=== PATIENT | female | born 1955 | race Caucasian/White ===

== ENCOUNTER 2017-11-16 20:31 | Inpatient (IN) | payer OTHER ==
[~2017-11-16] VITALS: Ht 165.1 cm; Wt 84.8 kg
[2017-11-16 21:20] LABS: ABSOLUTE BASOPHIL COUNT 0.1 /CUMM (0.0-0.2); ABSOLUTE EOSINOPHIL COUNT 0.2 /CUMM (0.0-0.7); ABSOLUTE GRANULOCYTE CT 7.3 /CUMM (1.4-6.5); ABSOLUTE LYMPH COUNT 4.6 /CUMM (1.2-3.4); ABSOLUTE MONOCYTE COUNT 1.1 /CUMM (0.10-0.60); BASOPHIL % 0.7 % (0.0-2.0); EOSINOPHIL % 1.4 % (0-5); GRANULOCYTE % 55.4 % (42.2-75.2); HEMATOCRIT 43.1 % (37-47); MEAN CORPUSCULAR HGB 29.9 PG (27.0-31.0); MEAN CORPUSCULAR HGB CONC 33.9 G/DL (33.0-37.0); MEAN CORPUSCULAR VOLUME 88.1 FL (81.0-99.0); PLATELET COUNT 228 /CUMM (130-400); RBC DISTRIBUTION WIDTH 13.9 % (11.5-14.5); RED BLOOD CELL CT 4.89 /CUMM (4.20-5.40); WHITE BLOOD CELL COUNT 13.3 /CUMM (4.8-10.8)
--- NOTE | 2017-11-16 22:12 | ED GI/GU/ABDOMINAL COMPLAINT ---
History of Present Illness General Chief Complaint: Nausea, Vomiting, Diarrhea Stated Complaint: NAUSEA,VOMITING Source: patient Exam Limitations: no limitations Vital Signs & Intake/Output Vital Signs & Intake/Output Vital Signs Date Time Temp Pulse Resp B/P B/P Pulse O2 O2 Flow FiO2 Mean Ox Delivery Rate 11/17 0615 98.5 85 18 136/84 91 Room Air 11/17 0144 98.6 88 18 180/96 92 Room Air 11/17 0129 79 20 177/81 98 11/16 2239 Room Air 11/16 2239 98.5 85 16 180/85 98 Room Air 11/16 2141 120/79 11/16 2108 96.8 89 18 82/50 96 Room Air ED Intake and Output 11/17 0000 11/16 1200 Intake Total 2000 Output Total Balance 1999 Intake, IV 2000 Patient 187 lb Weight Weight Reported by Patient Measurement Method Allergies Coded Allergies: NO KNOWN ALLERGIES (11/12/10) Triage Note: PT TO ED C/O +NAUSEA AND ABDOMINAL PAIN "FOR DAYS" I HAVEN'T BEEN ABLE TO EAT OR DRINK FOR 2 DAYS. 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 yes LMP (ages 10-50): post menopausal ? N Is pt currently ? No Onset: Abrupt Duration: day(s): (2-3), constant, continues in ED, getting worse Timing: single episode today Quality/Severity: sharpness, severe, stabbing Severity Numbers: 9 Location: epigastric, periumbilical Radiation: no radiation Activities at Onset: none Prior Abdominal Problems: none Past Sexual History: Unobtainable at this time No Modifying Factors: none Modifying Factors: Worsens With: palpation. Associated Symptoms: abdominal pain, nausea/vomiting HPI: 62-year-old female history of bipolar disorder and anxiety depression presents for evaluation of abdominal pain and nausea. Symptoms started 2 or 3 days ago, getting worse. The pain is located in the epigastric and periumbilical area does not radiate. Associated with nausea. No vomiting. She never had this before. She denies chest pain shortness of breath back pain or diarrhea. No recent abdominal surgeries no lower extremity edema. She's not taking any medicine for pain. She's not eating or drinking. She denies alcohol use. No history of gallstones. (Sebas Yu) Past History Travel History Traveled to [place] past 21 day No Medical History Any Pertinent Medical History? see below for history Psychiatric: anxiety, depression Pneumonia Vaccine: 01/20/10 Influenza Vaccine: 01/20/10 Surgical History Surgical History: non-contributory Psychosocial History Who do you live with Spouse What is your primary language Mongolian Tobacco Use: Current Daily Use Daily Tobacco Use Amount/Type: =< 4 Cigarettes daily ETOH Use: denies use Illicit Drug Use: denies illicit drug use Family History Hx Contributory? No (Sebas Yu) Review of Systems Review of Systems Constitutional: Reports: no symptoms. EENTM: Reports: no symptoms. Respiratory: Reports: no symptoms. Cardiovascular: Reports: no symptoms. GI: Reports: see HPI, abdominal pain, nausea. Genitourinary: Reports: no symptoms. Musculoskeletal: Reports: no symptoms. Skin: Reports: no symptoms. Neurological/Psychological: Reports: no symptoms. Hematologic/Endocrine: Reports: no symptoms. Immunologic/Allergic: Reports: no symptoms. All Other Systems: Reviewed and Negative (Sebas Yu) Physical Exam Physical Exam General Appearance: well developed/nourished, no apparent distress, alert, awake , obese Head: atraumatic, normal appearance Eyes: Bilateral: normal appearance, PERRL, EOMI. Ears, Nose, Throat, Mouth: hearing grossly normal, moist mucous membrane Neck: normal inspection, supple, full range of motion Respiratory: normal breath sounds, chest non-tender, no respiratory distress, lungs clear Cardiovascular: regular rate/rhythm, normal peripheral pulses Peripheral Pulses: 2+ radial (R), 2+ radial (L) Gastrointestinal: normal bowel sounds, soft, no organomegaly, tenderness ( EPIGASTRIC, PERIUMBILICAL) Back: normal inspection, normal range of motion, no vertebral tenderness, NO CVAT Extremities: normal range of motion Neurologic/Psych: no motor/sensory deficits, awake, alert, oriented x 3 Skin: intact, normal color, warm/dry Core Measures ACS in differential dx? No Sepsis Present: No Sepsis Focused Exam Completed? No (Sebas uY) Progress Differential Diagnosis: AAA, AMI, appendicitis, biliary colic, bowel obstruction , colon cancer, cholecystitis, diverticulitis, gastritis, hepatitis, hernia, ischemic bowel, inflamm bowel dis, intrauterine , kidney stone, pancreatitis, PID/cervicitis, peptic ulcer, PUD/GERD, SBO, UTI/pyelo Plan of Care: Orders Procedure Date/time Status Nothing by Mouth 11/17 B Active Change service to 11/17 0747 Active PROTHROMBIN TIME 11/17 06 Active CBC WITHOUT DIFFERENTIAL 11/17 06 Active BASIC ELECTROLYTES PLUS BUN&CR 11/17 0600 Active NUTRITIONAL CONSULT 11/17 0152 Active Weight 11/17 0145 Active Vital Signs 11/17 0145 Active Teach/Educate 11/17 014 Active Pain Treatment and Response 11/17 014 Active Nutritional Intake, Monitor 11/17 014 Active Isolation 11/17 014 Active Intake & Output 11/17 014 Active Patient Care Conference 11/17 0145 Active Activity/Ambulation 11/17 014 Active EKG 11/17 0046 Active Pathway - chart 11/17 0025 Active US-COMPLETE ABDOMEN 11/17 UNK Active House Staff 11/17 UNK Active Lab Add-on Test 11/17 UNK Active VTE Mechanical Prophylaxis 11/17 UNK Active Vital Signs 11/17 UNK Complete Activity/Ambulation 11/17 UNK Active ED Holding Orders 11/16 2334 Active Admit to inpatient 11/16 2334 Active Vital Signs 11/16 2334 Active Code Status 11/16 2334 Active Patient Data 11/16 2250 Active Add-on Test (ER Only) 11/16 2247 Active Add-on Test (ER Only) 11/16 2242 Active Intake & Output 11/16 2143 Active EKG 11/16 212 Active Add-on Test (ER Only) 11/16 212 Active TRIGLYCERIDES 11/16 2100 Complete LDH (LACT ACID DEHYDROGENASE) 11/16 2100 Complete LACTIC ACID 11/16 2100 Complete GLYCOSYLATED HGB 11/16 2100 Complete ETHANOL 11/16 2100 Complete URINALYSIS 11/16 2032 Complete TROPONIN LEVEL 11/16 2032 Complete LIPASE 11/16 2032 Complete COMPREHENSIVE METABOLIC PANEL 11/16 2032 Complete CBC WITHOUT DIFFERENTIAL 11/16 2032 Complete Current Medications Sig/Cheryl Start time Last Medication Dose Stop Time Status Admin Enoxaparin Sodium 40 MG DAILY 11/17 0900 CAN (Lovenox) Nicotine 7 MG DAILY 11/17 0900 AC (Nicotine Cq) Pantoprazole Sodium 40 MG DAILY 11/17 0900 AC (Protonix) Heparin Sodium 5,000 UNIT Q8 11/17 0600 AC 11/17 (Porcine) 0550 Lactated Ringer's 1,000 ML .Q10H 11/17 0200 AC 11/17 (Lactated Ringers) 11/17 Hydromorphone HCl 0.4 MG Q4P PRN 11/17 004 AC 11/17 (Dilaudid) 021 Melatonin 5 MG AT BEDTIME PRN 11/17 0045 AC 11/17 (Melatonin) 021 Morphine Sulfate 6 MG ONCE ONE 11/17 44 CAN (MORPHINE SULFATE) 11/17 004 Acetaminophen 1,000 MG Q6P PRN 11/17 003 AC (Ofirmev) Ondansetron HCl 4 MG Q6P PRN 11/17 003 AC (Zofran) Laboratory Tests 11/16/17 2310: Urinalysis LIGHT H, Urine Color YEL, Urine Clarity HAZY H, Urine pH 7.0, Ur Specific Victor 1.015, Urine Protein 30 H, Urine Ketones NEG, Urine Nitrite NEG, Urine Bilirubin NEG, Urine Urobilinogen 0.2, Ur Leukocyte Esterase LARGE H , Ur Microscopic SEDIMENT EXAMINED, Urine RBC 1-3, Urine WBC > 75 H, Ur Epithelial Cells MOD H, Urine Bacteria MOD H, Urine Mucus MOD H, Urine Hemoglobin TRACE-INTACT, Urine Glucose NEG 11/16/17 2100: Anion Gap 13, Estimated GFR 33 L, BUN/Creatinine Ratio 9.4, Glucose 113 H, Hemoglobin A1c 5.9 H, Lactic Acid 1.5, Calcium 10.5 H, Total Bilirubin 0.7, AST 38 H, ALT 31, Alkaline Phosphatase 78, Lactate Dehydrogenase 586, Troponin I 0.03, Total Protein 8.9 H, Albumin 4.9, Globulin 4.0, Albumin/Globulin Ratio 1.2, Triglycerides 286 H, Lipase > 06177 H, CBC w Diff NO MAN DIFF REQ, RBC 4.89, MCV 88.1, MCH 29.9, MCHC 33.9, RDW 13.9, MPV 11.0 H, Gran % 55.4, Lymphocytes % 34.4, Monocytes % 8.1, Eosinophils % 1.4, Basophils % 0.7, Absolute Granulocytes 7.3 H, Absolute Lymphocytes 4.6 H, Absolute Monocytes 1.1 H, Absolute Eosinophils 0.2, Absolute Basophils 0.1, Serum Alcohol < 10.0 Patient is here for evaluation of acute onset abdominal pain and nausea. No vomiting. Pain is located in the epigastric and periumbilical areas. On initial evaluation she is hypotensive to 80s over 60s. IV fluids were ordered. Repeat blood pressure improved to 120s systolic and then 180 systolic. She has no chest pain. Labs CT scan ordered patient medicated with IV morphine. Blood work is significant for an elevated lipase greater than 10,000. CT scan of the abdomen and pelvis unremarkable. EKG shows diffuse ST wave changes that appear somewhat similar to her old EKG. Troponin is negative. Etiology of pancreatitis at this time is unclear. Patient does take multiple medications. She will require admission to hospital for further evaluation and she would've pancreatitis. She'll require IV fluids, nothing by mouth, serial labs, ultrasound, monitoring of vital signs, IV anti-medics, IV pain meds. Case discussed with Dr. Zapien HE agrees Diagnostic Imaging: Viewed by Me: CT Scan. Discussed w/RAD: CT Scan. Radiology Impression: PATIENT: CATE KERN PRESENT AGE: 62 PATIENT ACCOUNT NO: [id number] : 55 LOCATION: [facility] ORDERING PHYSICIAN: Sebas RODRIGUEZ SERVICE DATE: 11/16/17 EXAM TYPE: CAT - CT ABD & PELVIS W/O IV CONTRAS EXAMINATION: CT ABDOMEN AND PELVIS WITHOUT CONTRAST CLINICAL INFORMATION: Acute pancreatitis. COMPARISON: 01/22/2010 TECHNIQUE: Multidetector volumetric imaging was performed from the superior aspect of the liver through the pubic symphysis. Sagittal and coronal reformatted images were obtained on the technologist's workstation. DLP: 534 mGy -cm FINDINGS: LUNG BASES: The visualized lung bases are unremarkable. LIVER, GALLBLADDER, AND BILIARY TREE: The liver is normal in size, shape, and attenuation. No focal hepatic lesion or biliary ductal dilatation is present. The gallbladder is distended with no evidence of radiopaque gallstones, gallbladder wall thickening, or obvious pericholecystic inflammatory changes. PANCREAS: The pancreatic parenchyma is homogenous. No peripancreatic inflammation or fluid collection. No ductal dilatation. SPLEEN: Unremarkable. ADRENAL GLANDS: The left adrenal gland is unremarkable. 1.6 cm right adrenal gland nodule likely representing a lipid rich adenoma. This is unchanged in size. KIDNEYS AND URETERS: The kidneys are normal in size, shape, and attenuation. No hydronephrosis, hydroureter, or calculi seen. No perinephric stranding. BLADDER: Unremarkable. GASTROINTESTINAL TRACT: The stomach is unremarkable. The small bowel is normal in caliber. There is no obstruction. A majority of the colon is decompressed. No inflammatory changes. The appendix is not seen, although no inflammation or wall thickening at the cecum. No free air or free fluid. ABDOMINAL WALL: No significant hernia is appreciated. LYMPH NODES : Normal. VASCULAR: Normal caliber aorta with mild atherosclerotic calcifications. PELVIC VISCERA: Unremarkable. OSSEOUS STRUCTURES: No acute or suspicious osseous abnormality. Mild degenerative changes throughout the spine. IMPRESSION: No acute findings in the abdomen or pelvis. No inflammatory changes. Unremarkable appearance of the pancreas. No bowel obstruction. Right adrenal adenoma. DICTATED BY: Brannon Santacruz MD DATE/TIME DICTATED:11/16/172346 FERRYBOAT DECKHAND:FELIPE DATE/TIME TRANSCRIBED:11/16/172346 CONFIDENTIAL, DO NOT COPY WITHOUT APPROPRIATE AUTHORIZATION. <Electronically signed in Other Vendor System> SIGNED BY: Brannon Santacruz MD 11/16/17 8333 Initial ED EKG: pacemaker spikes, sinus, diffuse t wave abn (Sebas Yu) Departure Departure Disposition: STILL A PATIENT Condition: Stable Clinical Impression Primary Impression: Acute pancreatitis Qualifiers: Pancreatitis type: unspecified pancreatitis type Acute pancreatitis complication: unspecified Qualified Code: K85.90 - Acute pancreatitis without necrosis or infection, unspecified Referrals: Nadia Shin APRN (PCP/Family) Departure Forms: Customer Survey General Discharge Information Admission Note Spoke With: Shiv Pelletier MD Documentation of Exam: Documentation of any treatments & extenuating circumstances including Concerns Regarding Discharge (functional status, medication knowledge or non-compliance, living conditions, etc.) that warrant an admission rather than observation: [ Serial labs IV fluids IV pain medications IV antiemetics GI consult] (Sebas Yu) Admission Note Documentation of Exam: Documentation of any treatments & extenuating circumstances including Concerns Regarding Discharge (functional status, medication knowledge or non-compliance, living conditions, etc.) that warrant an admission rather than observation: 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 I have also reviewed all the pertinent lab results and diagnostic results. I agree with the findings and the plan of care as documented in the PA's/SAL[employer] REPRESENTATIVE [employer]'s documentation. [] I have reviewed the ED Record and agree with the PA's/[employer]AL[employer] REPRESENT[employer]'s documentation. [] Additions or exceptions (if any) to the PAs/SAL[employer] REPRESENTATIVE [employer]'s note and plan are summarized below: [] Severe epigastric abdominal pain. Markedly elevated lipase. CAT scan pending. The patient is being admitted for IV fluids, consider surgical consultation, lipid profile, review medications, ultrasound in the a.m. (Arcadio Zapien DO)
--- NOTE | 2017-11-16 23:37 | History & Physical ---
Valerio Blanco 11/16/17 3704: General Information and HPI MD Statement: I have seen and personally examined CATE KERN and documented this H&P. The patient is a 62 year old F who presented with a patient stated chief complaint of [nausea and abdominal pain for several days, decreased PO intake]. Source of Information: patient, old records History of Present Illness: Cate Busch is 62yo F PMH Colitis (follows Dr Boswell last seen several weeks ago), EtOH abuse (per 2009 discharge summary, on CIWA) recent Endoscopy in 04/[address] Boswell (GE junction ring; erosive gastroduodenitis, duodenal ulcer), US guided Biopsy of Lymph node on 06/22 that was negative for CA, past suicide attempt in 2010 overdosed on Fioricet which required inpatient hospitalization Patient presents today with a two day history of nausea and abdominal pain ( started 8/10) which she woke up with and progressively worsened. Pt states that the pain is similar to getting punched in the stomach, constant in nature, 10/10 although started as a 5/10, and does not radiate. States that Sarah seltzer and Pepto Bismol did not help her pain. Also admits to diarrhea which is non greasy non bloody, and decreased PO intake 2/2 nausea. Does deny any vomiting. States that the only significant change in her life recently has been that she is under more stress; denies any alcohol usage - "I was an alcoholic but I quit 8 years ago" - and denies any recent changes in habits or diet. PMH: as above Allergies: ?Keflex - rash Sx: noncontributory Soc: Smokes <4 cigarettes a day, 45 pack years; former alcoholic, no drug usage, disabled ROS Positive for: Chills, Night Sweats, Chest pain (tightness on admission trops negative no ST changes), Shortness of breath, Diarrhea Negative for: Vomiting, Palpitations, Cough, Sick contacts, LE edema Past History Travel History Traveled to [place] past 21 day No Medical History Neurological: TIA Cardiovascular: hypertension Gastrointestinal: colitis Psychiatric: anxiety, depression Pneumonia Vaccine: 01/20/10 Influenza Vaccine: 01/20/10 Surgical History Surgical History: non-contributory Past Family/Social History Psychosocial History Smoking Status: Current Everyday Smoker (45 pack years) ETOH Use: denies use, alcoholic (former, quit 8 years ago) Illicit Drug Use: denies illicit drug use Functional Ability ADLs Independent: dressing, eating, toileting, bathing. Ambulation: independent IADLs Independent: shopping, housework, finances, food prep, telephone, transportation , medication admin. Review of Systems Review of Systems Constitutional: Reports: see HPI, chills, diaphoresis. Denies: fever. Cardiovascular: Denies: edema, palpitations. Respiratory: Reports: short of breath. Denies: cough. GI: Reports: abdominal pain, diarrhea, nausea. Denies: vomiting. Exam & Diagnostic Data Last 24 Hrs of Vital Signs/I&O Vital Signs Date Time Temp Pulse Resp B/P B/P Pulse O2 O2 Flow FiO2 Mean Ox Delivery Rate 11/17 0144 98.6 88 18 180/96 92 Room Air 11/17 0129 79 20 177/81 98 11/16 2239 Room Air 11/16 2239 98.5 85 16 180/85 98 Room Air 11/16 2141 120/79 11/16 2108 96.8 89 18 82/50 96 Room Air Intake & Output 11/17 0800 11/17 0000 11/16 1600 Intake Total 2000 Output Total Balance 2000 Intake, IV 2000 Patient 187 lb 187 lb Weight Weight Reported by Patient Reported by Patient Measurement Method Physical Exam General Appearance Alert, Oriented X3, Cooperative, Mild Distress (pain) Skin No Rashes HEENT Atraumatic Cardiovascular Regular Rate, Normal S1, Normal S2 Lungs RUL wheeze Abdomen Soft, diffuse tenderness to epigastrum region, no peritoneal signs Neurological Normal Speech, Strength at 5/5 X4 Ext Extremities No Edema Last 24 Hrs of Labs/Edilberto: Laboratory Tests 11/16/17 2310: Urinalysis LIGHT H, Urine Color YEL, Urine Clarity HAZY H, Urine pH 7.0, Ur Specific [place] 1.015, Urine Protein 30 H, Urine Ketones NEG, Urine Nitrite NEG, Urine Bilirubin NEG, Urine Urobilinogen 0.2, Ur Leukocyte Esterase LARGE H , Ur Microscopic SEDIMENT EXAMINED, Urine RBC 1-3, Urine WBC > 75 H, Ur Epithelial Cells MOD H, Urine Bacteria MOD H, Urine Mucus MOD H, Urine Hemoglobin TRACE-INTACT, Urine Glucose NEG 11/16/17 2100: Anion Gap 13, Estimated GFR 33 L, BUN/Creatinine Ratio 9.4, Glucose 113 H, Hemoglobin A1c Pending, Lactic Acid 1.5, Calcium 10.5 H, Total Bilirubin 0.7, AST 38 H, ALT 31, Alkaline Phosphatase 78, Lactate Dehydrogenase 586, Troponin I 0.03, Total Protein 8.9 H, Albumin 4.9, Globulin 4.0, Albumin/Globulin Ratio 1.2, Triglycerides 286 H, Lipase > 46587 H, CBC w Diff NO MAN DIFF REQ, RBC 4.89, MCV 88.1, MCH 29.9, MCHC 33.9, RDW 13.9, MPV 11.0 H, Gran % 55.4, Lymphocytes % 34.4, Monocytes % 8.1, Eosinophils % 1.4, Basophils % 0.7, Absolute Granulocytes 7.3 H, Absolute Lymphocytes 4.6 H, Absolute Monocytes 1.1 H, Absolute Eosinophils 0.2, Absolute Basophils 0.1, Serum Alcohol < 10.0 Assessment/Plan Assessment: Ms. Vargas is a 62yo F w/ PMH of NIDDM, HTN, hx of TIA, s/p pacemaker, hx of alcohol use disorder, presented to ER cc of Nausea and ab pain w/ decreased PO intake x 2 days, and hypotension 82/50. She met sepsis criteria for severe sepsis 2/2 pancreatitis (hypothermic, hypotensive responded to fluid, leukocytosis with suspected source); CT findings were inconclusive for acute process however. Problem list/Assessment/Hospital Course: #Acute pancreatitis, 2/2 alcohol? #Severe sepsis 2/2 acute pancreatitis(Hypothermia, Hypotension responded to fluid, Leukocytosis, source of infx) #DANNY on CKD stage 3? #Active Smoker #PMHx as above - Admit to general medicine - Vitals per protocol, monitor I&O per protocol. - Keep NPO and advance diet per clinical course - Recheck HbA1c. - Continuous Lactate Ringer 100cc/hr due to mild elevated Ca. - Pending AB CT/US to rule out GB stone-induced pancreatitis. - Confirm home meds with [facility] in the AM. Patient was only on meds for mental health. - Nicotine patch PRN - Recheck PT/INR and BEP/CBC in the AM. - Pain per pathway w/ Dilaudid and IV tylenol, patient refused morphine as she had one in ER made her "not feeling well in stomach". DVT prophylaxis Heparin SC + ALPS NPO IV Access: Peripheral IV Full Code Dispo: Likely [facility] As Ranked By This Provider Problem List: 1. Acute pancreatitis Qualifiers Pancreatitis type: unspecified pancreatitis type Acute pancreatitis complication: unspecified Qualified Code: K85.90 - Acute pancreatitis without necrosis or infection, unspecified Core Measures/Misc (12/22) Acute Coronary Syndrome ACS Diagnosis: No Congestive Heart Failure Congestive Heart Failure Diagnosis No Cerebrovascular Accident CVA/TIA Diagnosis: No VTE (View Protocol) VTE Risk Factors Age>40 No Mechanical VTE Prophylaxis d/t N/A MechProphylax Ordered No VTE Pharm Prophylaxis d/t NA PharmProphylax ordered Sepsis (View protocol) Sepsis Present: Yes If YES complete Sepsis Event Note If YES complete Sepsis Event Note Inpatient Sepsis Exam Sepsis Cardiac Exam: Regular Rate/Rhythm Sepsis Resp Exam: CTA Sepsis Cap Refill Exam: <2 Sec Sepsis Peripheral Pulse Exam: Normal Sepsis Peripheral Pulse Location: Dorsalis Pedis Sepsis Skin Color Exam: Normal for Ethnicity Skin Temp/Moisture Exam: Warm/Dry Sarah Youngblood 11/16/17 2356: Core Measures/Misc (12/22) Sepsis (View protocol) If YES complete Sepsis Event Note If YES complete Sepsis Event Note Resident Review Statement Resident Statement: examined this patient, discussed with environmental health and safety intern, agreed with environmental health and safety intern, discussed with family, reviewed EMR data (avail), discussed with nursing , discussed with case mgmt, reviewed images, amended to note Other Findings: Ms. Vargas is a 62yo F w/ PMH of NIDDM, HTN, hx of TIA, s/p pacemaker, hx of alcohol use disorder, presetned to ER cc of Nausea and ab pain w/ decreased PO intake x 2 days, and hypotension 82/50. -Baselines: -Work: -FHx: During our clinical interaction, patient denied recent travel/sick contacts, fever/lightheadedness/diaphoresis/night sweat/weight change/cough/SOB/Chest Pain /Palpitation/Abdominal pain/CVA tenderness/bowel movement or urinary abnormality , or other skin/musculoskeletal/neurological/mood disorders, or dietary/appetite change. -SmokinPPD x 45yrs -Alcohol: quitted x 8years -Drugs: Denied -Outpt physicians: -Daytime meds: On admission, Vitals: afebrile, tachycardia 89, RR 18, BP 82/50 -> 120/79 -> 180/85, 98RA Physical exam as above. Pertinent findings include perfuse tenderness on epigastric region, and some wheezing at RUL. Otherwise unremarkable. -CBC: Mild leukocytosis 13.3, otherwise WNL. -CMP: Na 135, elevated Cr 1.6, Ca 10.5, trop 0.03, Lipase >16123, -AB CT: No acute findings in the abdomen or pelvis. No inflammatory changes. Unremarkable appearance of the pancreas. No bowel obstruction. -EKG: Pacemaker spikes?, w/o significant ST-T abnormalities, unchanged from previous. -Last Echo: none in our system -Interventions in ER: NS bolus x 2L, Zofran x 1, reglan x 1, morephine x 1 Problem list/Assessment/Hospital Course: #Acute pancreatitis, 2/2 alcohol? #Severe sepsis 2/2 acute pancreatitis(Hypothermia, Hypotension responded to fluid, Leukocytosis, source of infx) #DANNY on CKD stage 3? #Active Smoker #PMHx as above - Admit to general medicine - Vitals per protocol, monitor I&O per protocol. - Keep NPO and advance diet per clinical course - Recheck HbA1c. - Continuous Lactate Ringer 100cc/hr due to mild elevated Ca. - Pending AB CT/US to rule out GB stone-induced pancreatitis. - Confirm home meds with [facility] in the AM. Patient was only on meds for mental health. - Nicotine patch PRN - Recheck PT/INR and BEP/CBC in the AM. - Pain per pathway w/ Dilaudid and IV tylenol, patient refused morphine as she had one in ER made her "not feeling well in stomach". DVT prophylaxis Heparin SC + ALPS NPO IV Access: Peripheral IV Full Code Dispo: Likely [facility] [place] Liyah GONZALEZShiv 11/17/17 9934: General Information and HPI Statement: I have seen and personally examined CATE KERN and documented this H&P. The patient is a 62 year old F who presented with a patient stated chief complaint of [abdominal pain]. Source of Information: patient Allergies/Medications Allergies: Coded Allergies: NO KNOWN ALLERGIES (11/12/10) Past History Medical History Neurological: TIA Cardiovascular: hypertension Gastrointestinal: colitis Psychiatric: anxiety, depression Past Family/Social History Psychosocial History Smoking Status: Current Everyday Smoker ETOH Use: alcoholic Illicit Drug Use: denies illicit drug use Review of Systems Review of Systems Constitutional: Reports: see HPI. Exam & Diagnostic Data Last 24 Hrs of Vital Signs/I&O Vital Signs Date Time Temp Pulse Resp B/P B/P Pulse O2 O2 Flow FiO2 Mean Ox Delivery Rate 11/17 0144 98.6 88 18 180/96 92 Room Air 11/17 0129 79 20 177/81 98 11/16 2239 Room Air 11/16 2239 98.5 85 16 180/85 98 Room Air 11/16 2141 120/79 11/16 2108 96.8 89 18 82/50 96 Room Air Intake & Output 11/17 0800 11/17 0000 11/16 1600 Intake Total 2000 Output Total Balance 2000 Intake, IV 2000 Patient 187 lb 187 lb Weight Weight Reported by Patient Reported by Patient Measurement Method Physical Exam General Appearance Alert, Oriented X3, Cooperative, Mild Distress Skin No Rashes Skin Temp/Moisture Exam: Cool/Dry Sepsis Skin Exam (color): Normal for Ethnicity HEENT Atraumatic, PERRLA, EOMI Neck Supple, No JVD, No thryomegaly Lymphatic Axillary nl, Cervical nl Cardiovascular Regular Rate, Normal S1, Normal S2 Lungs RUL wheeze Abdomen Soft, diffuse tenderness to epigastrum region, no peritoneal signs Neurological Normal Gait, Normal Speech Extremities No Edema Sepsis Peripheral Pulse Location: Dorsalis Pedis Sepsis Peripheral Pulse Exam: Normal Sepsis Cap Refill Exam: <2 Sec Last 24 Hrs of Labs/Edilberto: Laboratory Tests 11/16/17 2310: Urinalysis LIGHT H, Urine Color YEL, Urine Clarity HAZY H, Urine pH 7.0, Ur Specific [place] 1.015, Urine Protein 30 H, Urine Ketones NEG, Urine Nitrite NEG, Urine Bilirubin NEG, Urine Urobilinogen 0.2, Ur Leukocyte Esterase LARGE H , Ur Microscopic SEDIMENT EXAMINED, Urine RBC 1-3, Urine WBC > 75 H, Ur Epithelial Cells MOD H, Urine Bacteria MOD H, Urine Mucus MOD H, Urine Hemoglobin TRACE-INTACT, Urine Glucose NEG 11/16/17 2100: Anion Gap 13, Estimated GFR 33 L, BUN/Creatinine Ratio 9.4, Glucose 113 H, Hemoglobin A1c Pending, Lactic Acid 1.5, Calcium 10.5 H, Total Bilirubin 0.7, AST 38 H, ALT 31, Alkaline Phosphatase 78, Lactate Dehydrogenase 586, Troponin I 0.03, Total Protein 8.9 H, Albumin 4.9, Globulin 4.0, Albumin/Globulin Ratio 1.2, Triglycerides 286 H, Lipase > 36893 H, CBC w Diff NO MAN DIFF REQ, RBC 4.89, MCV 88.1, MCH 29.9, MCHC 33.9, RDW 13.9, MPV 11.0 H, Gran % 55.4, Lymphocytes % 34.4, Monocytes % 8.1, Eosinophils % 1.4, Basophils % 0.7, Absolute Granulocytes 7.3 H, Absolute Lymphocytes 4.6 H, Absolute Monocytes 1.1 H, Absolute Eosinophils 0.2, Absolute Basophils 0.1, Serum Alcohol < 10.0 Core Measures/Misc (12/22) Sepsis (View protocol) If YES complete Sepsis Event Note If YES complete Sepsis Event Note Attending MD Review Statement Attending Statement Attending MD Statement: examined this patient, discuss w/resident/PA/OTHER SPORTS COACH OR INSTRUCTOR, agreed w/resident/PA/OTHER SPORTS COACH OR INSTRUCTOR, amended to note Attending Assessment/Plan: This patient is a 62-year-old white female with a significant past medical history for Colitis (follows Dr Boswell last seen several weeks ago), EtOH abuse (per 2010 discharge summary) recent Endoscopy in 04/[address] Boswell (GE junction ring; erosive gastroduodenitis, duodenal ulcer), US guided Biopsy of Lymph node on 06/22 that was negative for CA, past suicide attempt in 2010 overdosed on Fioricet which required inpatient hospitalization. She presents today with a two day history of nausea and abdominal pain (started 11/14) which she woke up with and progressively worsened. Also complains of nausea and diarrhea. Upon evaluation in the emergency department the patient was found to be slightly hypothermic at 96.8, hypotensive, leukocytosis 13.3, positive UA, creatinine 1.6, lipase greater than 10,000, EKGquestionable pacemaker spikes, no significant ST T abnormalities, CT abdomen/pelvis - no acute disease and chest x -rayno acute disease. Admit to general medicine for sepsis and pancreatitis. Nothing by mouth, gentle hydration, consider abdominal ultrasound to rule out gallstones, and manage underlying pain. Full code
--- NOTE | 2017-11-16 23:50 | RADIOLOGY REPORT ---
EXAMINATION: XR PORTABLE CHEST CLINICAL INFORMATION: Chest pain. COMPARISON: 01/27/2017 TECHNIQUE: Portable frontal view of the chest was obtained. FINDINGS: The lungs are well expanded. Linear right mid lung atelectasis. No consolidation or effusion. No edema. No pneumothorax. The cardiomediastinal silhouette is unchanged, with a calcified aorta. IMPRESSION: Linear right mid lung atelectasis. Otherwise clear lungs.
--- NOTE | 2017-11-16 23:53 | CT SCAN REPORT ---
EXAMINATION: CT ABDOMEN AND PELVIS WITHOUT CONTRAST CLINICAL INFORMATION: Acute pancreatitis. COMPARISON: 01/22/2010 TECHNIQUE: Multidetector volumetric imaging was performed from the superior aspect of the liver through the pubic symphysis. Sagittal and coronal reformatted images were obtained on the technologist's workstation. DLP: 534 mGy-cm FINDINGS: LUNG BASES: The visualized lung bases are unremarkable. LIVER, GALLBLADDER, AND BILIARY TREE: The liver is normal in size, shape, and attenuation. No focal hepatic lesion or biliary ductal dilatation is present. The gallbladder is distended with no evidence of radiopaque gallstones, gallbladder wall thickening, or obvious pericholecystic inflammatory changes. PANCREAS: The pancreatic parenchyma is homogenous. No peripancreatic inflammation or fluid collection. No ductal dilatation. SPLEEN: Unremarkable. ADRENAL GLANDS: The left adrenal gland is unremarkable. 1.6 cm right adrenal gland nodule likely representing a lipid rich adenoma. This is unchanged in size. KIDNEYS AND URETERS: The kidneys are normal in size, shape, and attenuation. No hydronephrosis, hydroureter, or calculi seen. No perinephric stranding. BLADDER: Unremarkable. GASTROINTESTINAL TRACT: The stomach is unremarkable. The small bowel is normal in caliber. There is no obstruction. A majority of the colon is decompressed. No inflammatory changes. The appendix is not seen, although no inflammation or wall thickening at the cecum. No free air or free fluid. ABDOMINAL WALL: No significant hernia is appreciated. LYMPH NODES: Normal. VASCULAR: Normal caliber aorta with mild atherosclerotic calcifications. PELVIC VISCERA: Unremarkable. OSSEOUS STRUCTURES: No acute or suspicious osseous abnormality. Mild degenerative changes throughout the spine. IMPRESSION: No acute findings in the abdomen or pelvis. No inflammatory changes. Unremarkable appearance of the pancreas. No bowel obstruction. Right adrenal adenoma.
[2017-11-17 01:44] VITALS: BP 180/96
--- NOTE | 2017-11-17 05:04 | Sepsis Event Note ---
Sepsis Event Note Severe Sepsis Severe Sepsis Present: Yes Severe Sepsis Actions Taken: Blood Cultures x2, Lactic Acid x2, IV Fluids- NS or LR Septic Shock Septic Shock Present: No Event Note Event Note: Mrs Busch is a 62F who presented with a 2 day history of nausea/abdominal pain and diarrhea, who was found to have Lipase >36401 on labs and admitted for acute pancreatitis. She was hypothermic, hypotensive on presentation with leukocytosis and source; she responded appropriately to fluids. Sepsis Focused Exam Sepsis Cardiac Exam: Regular Rate/Rhythm Sepsis Resp Exam: CTA Sepsis Cap Refill Exam: <2 Sec Sepsis Peripheral Pulse Exam: Normal Sepsis Peripheral Pulse Location: Dorsalis Pedis Sepsis Skin Exam (color): Normal for Ethnicity Skin Temp/Moisture Exam: Warm/Dry
[2017-11-17 06:15] VITALS: BP 136/84
--- NOTE | 2017-11-17 07:30 | PN- Housestaff ---
Robert Elaine 11/17/17 0729: Subjective Follow-up For: Pancreatitis AK I on CKD Hypercalcemia Hypertriglyceridemia Subjective: I visited the patient his morning, she was laying back in her bed, alert and oriented x3, in no acute distress. She said she had some nonradiating, retrosternal chest discomfort last night feeling like someone was stomping on her which resolved with her pain meds. Chest discomfort is not present this am. This morning she complains of 7/10 nonradiating, periumbilical/epigastric abdominal pain improved from yesterday, severe headache, and body aches. She denies chest pain, SOB, leg pain. Review of Systems Constitutional: Reports: see HPI. Objective Last 24 Hrs of Vital Signs/I&O Vital Signs Date Time Temp Pulse Resp B/P B/P Pulse O2 O2 Flow FiO2 Mean Ox Delivery Rate 11/17 1347 98.4 82 20 118/80 92 Room Air 11/17 0800 Room Air 11/17 0615 98.5 85 18 136/84 91 Room Air 11/17 0144 98.6 88 18 180/96 92 Room Air 11/17 0129 79 20 177/81 98 11/16 2239 Room Air 11/16 2239 98.5 85 16 180/85 98 Room Air 11/16 2141 120/79 11/16 2108 96.8 89 18 82/50 96 Room Air Intake & Output 11/17 1600 11/17 0800 11/17 0000 Intake Total 1460 221 7821 Output Total Balance 7184 422 9040 Intake, IV 6572 205 1804 Intake, Oral 0 Patient 187 lb 187 lb 187 lb Weight Weight Reported by Patient Reported by Patient Measurement Method Physical Exam General Appearance: Alert, Oriented X3, Cooperative, No Acute Distress Skin: No Rashes, No Breakdown Skin Temp/Moisture Exam: Warm/Dry Sepsis Skin Exam (color): Normal for Ethnicity HEENT: Atraumatic Neck: Supple Cardiovascular: Regular Rate, Normal S1, Normal S2 Lungs: Clear to Auscultation, Normal Air Movement Abdomen: Normal Bowel Sounds, Soft, Tenderness in upper Abdomen and RUQ Neurological: Normal Speech Assessment/Plan Assessment: Pt is a 62YOF with PMH of HTN, TIA, Colitis (followed by Dr. Boswell who did an endoscopy in 04/24), EtOH abuse (last drink 12 years ago as pt reports). She recently had a cervical LN biopsy in 06/22 which was neg for neoplasm. Pt has a long psychiatric hx as well significant for bipolar disorder (not treated currently) and a suicide attempt in 2010 with overdose of fioricet for which she was tx inpatient here. RUQ US performed today did not show evidence of cholecystitis. Gall bladder was slightly enlarged but there was no pericholecystic fluid or stones visualized. CBD was normal caliber. Pancreatitis: The most common etiologies of pancreatitis are gallstone pancreatitis and alcoholic. As pt's blood EtOH was not detectable, we are pursuing gallstone pancreatitis. RUQ US did not demonstrate any stones but pt could have passed a stone which irritated the pancreas. We will also consider idiopathic pancreatitis. Plan: continue NPO and pain control, nausea control , more aggressive IV hydration with LR at 150mL/hr, monitor LFTs DANNY on CKD: Pt has baseline kidney disease with Cr last measured as 1.4 in Apr 2017. Today, Cr is back to baseline at 1.5 with hydration making prerenal azotemia the most likely etiology of elevated Cr. Plan: BEP tomorrow, continue IV hydration while pt is NPO Hypercalcemia: Pt's hypercalcemia of unknown origin. Plan: recheck Ca, continue IV LR for now Hypertrigliceridemia: Pt's triglicerides are elevated likely d/t diet and lifestyle. Plan: consider statin when pt is stable, f/u outpatient Problem List: 1. Acute pancreatitis Pain Ratin Pain Location: Abdomen Pain Goal: Pain 7 or less Pain Plan: Dilaudid Acetaminophen Tomorrow's Labs & Rationales: Not applicable Dallas Chang MD 11/17/170: Attending MD Review Statement Attending Statement Attending MD Statement: examined this patient, discuss w/resident/PA/GLOBAL EXPANSION SALES DIRECTOR, agreed w/resident/PA/GLOBAL EXPANSION SALES DIRECTOR, reviewed EMR data (avail), discussed with nursing, discussed with case mgmt, reviewed images, amended to note Attending Assessment/Plan: The patient was seen and discussed with house staff. Agree with the plan of care as above. The patient c/o headache in spite of Dilaudid and tylenol. Will restart her usual meds (including Xanax). Continue IV Ringers Lactate.
--- NOTE | 2017-11-17 08:18 | PN- Student ---
Juan Diego Styles 11/17/17 0807: Subjective Subjective: Pt seen and examined this morning. She said she had some nonradiating, retrosternal chest discomfort last night feeling like someone was stomping on her which resolved with her pain meds. Chest discomfort is not present this am. This morning she complains of 6/10 nonradiating, periumbilical/epigastric abdominal pain improved from yesterday, severe headache, and body aches. She denies chest pain, SOB, leg pain. Objective Objective: Vital Signs Date Time Temp Pulse Resp B/P B/P Pulse O2 O2 Flow FiO2 Mean Ox Delivery Rate 11/17 0615 98.5 85 18 136/84 91 Room Air 11/17 0144 98.6 88 18 180/96 92 Room Air 11/17 0129 79 20 177/81 98 11/16 2239 Room Air 11/16 2239 98.5 85 16 180/85 98 Room Air 11/16 2141 120/79 11/16 2108 96.8 89 18 82/50 96 Room Air Intake & Output 11/17 1600 11/17 0800 11/17 0000 Intake Total 400 2000 Output Total Balance 400 2000 Intake, IV 400 2000 Intake, Oral 0 Patient 187 lb 187 lb 187 lb Weight Weight Reported by Patient Reported by Patient Measurement Method PE Gen - pt in mild discomfort, raspy voice (baseline) Psych - appropriate affect, nervous Neuro - AOx4 CV - RRR no mrg Pulm - slight wheeze BL in all zepeda, no increased work of breathing Abd - tender to light palpation in all quadrants with no peritoneal signs Ext - arms and legs are warm and well perfused, no edema, DP 2+ BL Results Results: Laboratory Tests 11/17/17 1036: Anion Gap 8, Estimated GFR 35 L, BUN/Creatinine Ratio 11.3, PT 12.5, INR 1.15, CBC w Diff NO MAN DIFF REQ, RBC 3.95 L, MCV 89.6, MCH 30.7, MCHC 34.3, RDW 14.4 , MPV 11.9 H, Gran % 79.4 H, Lymphocytes % 15.3 L, Monocytes % 4.4, Eosinophils % 0.6, Basophils % 0.3, Absolute Granulocytes 6.4, Absolute Lymphocytes 1.2, Absolute Monocytes 0.4, Absolute Eosinophils 0, Absolute Basophils 0 11/16/17 2310: Urinalysis LIGHT H, Urine Color YEL, Urine Clarity HAZY H, Urine pH 7.0, Ur Specific [place] 1.015, Urine Protein 30 H, Urine Ketones NEG, Urine Nitrite NEG, Urine Bilirubin NEG, Urine Urobilinogen 0.2, Ur Leukocyte Esterase LARGE H , Ur Microscopic SEDIMENT EXAMINED, Urine RBC 1-3, Urine WBC > 75 H, Ur Epithelial Cells MOD H, Urine Bacteria MOD H, Urine Mucus MOD H, Urine Hemoglobin TRACE-INTACT, Urine Glucose NEG 11/16/17 2100: Anion Gap 13, Estimated GFR 33 L, BUN/Creatinine Ratio 9.4, Glucose 113 H, Hemoglobin A1c 5.9 H, Lactic Acid 1.5, Calcium 10.5 H, Total Bilirubin 0.7, AST 38 H, ALT 31, Alkaline Phosphatase 78, Lactate Dehydrogenase 586, Troponin I 0.03, Total Protein 8.9 H, Albumin 4.9, Globulin 4.0, Albumin/Globulin Ratio 1.2, Triglycerides 286 H, Lipase > 98522 H, CBC w Diff NO MAN DIFF REQ, RBC 4.89, MCV 88.1, MCH 29.9, MCHC 33.9, RDW 13.9, MPV 11.0 H, Gran % 55.4, Lymphocytes % 34.4, Monocytes % 8.1, Eosinophils % 1.4, Basophils % 0.7, Absolute Granulocytes 7.3 H, Absolute Lymphocytes 4.6 H, Absolute Monocytes 1.1 H, Absolute Eosinophils 0.2, Absolute Basophils 0.1, Serum Alcohol < 10.0 Assessment/Plan Assessment: Pt is a 62YOF with PMH of HTN, TIA, Colitis (followed by Dr. Boswell who did an endoscopy in 04/24), EtOH abuse (last drink 12 years ago as pt reports). She recently had a cervical LN biopsy in 06/22 which was neg for neoplasm. Pt has a long psychiatric hx as well significant for bipolar disorder (not treated currently) and a suicide attempt in 2010 with overdose of fioricet for which she was tx inpatient here. Pt presented to the ED yesterday with mid abdominal pain, nausea, diarrhea, and anorexia. She was found to have a lipase >10K but had no CT changes and only slight elevation of AST with no other transaminitis. Pt's cr was 1.6, ca 10.5, and TG 286. PT and INR w/in normal limits. RUQ US performed today did not show evidence of cholecystitis. Gall bladder was slightly enlarged but there was no pericholecystic fluid or stones visualized. CBD was normal caliber. Problem List/Plan 1. Pancreatitis The most common etiologies of pancreatitis are gallstone pancreatitis and alcoholic pancreatitis. As pt's blood EtOH was not detectable, we are pursuing gallstone pancreatitis. RUQ US did not demonstrate any stones but pt could have passed a stone which irritated the pancreas. We will also consider idiopathic pancreatitis. - continue NPO and pain control, nausea control - more aggressive IV hydration with LR at 150mL/hr - monitor LFTs 2. DANNY on CKD Pt has baseline kidney disease with Cr last measured as 1.4 in Apr 2017. Today, Cr is back to baseline at 1.5 with hydration making prerenal azotemia the most likely etiology of elevated Cr. - BEP tomorrow - continue IV hydration while pt is NPO 3. Hypercalcemia Pt's hypercalcemia of unknown origin. - recheck Ca - continue IV LR for now 4. Hypertrigliceridemia Pt's triglicerides are elevated likely d/t diet and lifestyle. - consider statin when pt is stable - f/u outpatient
--- NOTE | 2017-11-17 10:16 | ULTRASOUND REPORT ---
EXAMINATION: US ABDOMEN COMPLETE CLINICAL INFORMATION: Abdominal pain, increased lipase. COMPARISON: CT abdomen and pelvis 11/16/2017. TECHNIQUE: Real-time imaging of the abdominal viscera. FINDINGS: PANCREAS: Obscured by bowel gas. ABDOMINAL AORTA: The proximal segment is normal in caliber. INFERIOR VENA CAVA: Visualized portions are normal. LIVER: Normal. The liver demonstrates normal size, contour and echogenicity. No focal lesion or intrahepatic biliary duct dilatation. GALLBLADDER: Mildly distended without stones, gallbladder wall thickening, pericholecystic fluid, or focal tenderness reported by the technologist. COMMON BILE DUCT: Normal in caliber measuring 0.4 cm in diameter. RIGHT KIDNEY: Normal. No hydronephrosis. No renal calculi or focal parenchymal lesions. The kidney measures 10.0 cm in maximum dimension. LEFT KIDNEY: Normal. No hydronephrosis. No renal calculi or focal parenchymal lesions. The kidney measures 9.4 cm in maximum dimension. SPLEEN: Normal. The spleen measures 7.8 cm in maximum dimension. FREE FLUID: None. IMPRESSION: The gallbladder is mildly distended without evidence of cholecystitis. No cholelithiasis. The pancreas is obscured by bowel gas.
[2017-11-17 11:43] LABS: PT 12.5 SEC (9.4-12.5)
[2017-11-17 11:49] LABS: ABSOLUTE BASOPHIL COUNT 0 /CUMM (0.0-0.2); ABSOLUTE EOSINOPHIL COUNT 0 /CUMM (0.0-0.7); ABSOLUTE LYMPH COUNT 1.2 /CUMM (1.2-3.4); ABSOLUTE MONOCYTE COUNT 0.4 /CUMM (0.10-0.60); MEAN PLATELET VOLUME 11.9 FL (7.4-10.4); RBC DISTRIBUTION WIDTH 14.4 % (11.5-14.5)
[2017-11-17 11:54] LABS: ABSOLUTE GRANULOCYTE CT 6.4 /CUMM (1.4-6.5); BASOPHIL % 0.3 % (0.0-2.0); EOSINOPHIL % 0.6 % (0-5); GRANULOCYTE % 79.4 % (42.2-75.2); MEAN CORPUSCULAR HGB 30.7 PG (27.0-31.0); MEAN CORPUSCULAR HGB CONC 34.3 G/DL (33.0-37.0); MEAN CORPUSCULAR VOLUME 89.6 FL (81.0-99.0); PLATELET COUNT 180 /CUMM (130-400); RED BLOOD CELL CT 3.95 /CUMM (4.20-5.40)
[2017-11-17 11:56] LABS: HEMATOCRIT 35.4 % (37-47)
[2017-11-17 13:47] VITALS: BP 118/80
[2017-11-17 21:11] VITALS: BP 118/72
--- NOTE | 2017-11-18 06:39 | PN- Housestaff ---
Robert Elaine 11/18/17 0639: Subjective Follow-up For: Pancreatitis AK I on CKD Hypercalcemia Hypertriglyceridemia Subjective: Pt seen and examined this morning at bedside. She reports great improvements from yesterday though she did not sleep much overnight. Currently, she has nonradiating epigastric pain only with palpation but not when resting or moving. She is nauseous but her anti-nausea medications improve her symptoms and she feels ready to try liquids and foods today. Headache from yesterday persists but is only a 2/10 with meds. Pt reports chest pressure overnight as she had the night before which resolved with her pain meds. She also reports dysuria, which she had a couple of weeks ago related to a rash on her labia. Her hand sizer prescribed her some creams which she had been using at home which improved the rash and dysuria. Pt denies chest pain/pressure currently, SOB, weakness, fever, vomiting, and leg pain. She had one episode of loose stool overnight. Review of Systems Constitutional: Reports: see HPI. Objective Last 24 Hrs of Vital Signs/I&O Vital Signs Date Time Temp Pulse Resp B/P B/P Pulse O2 O2 Flow FiO2 Mean Ox Delivery Rate 11/18 1424 98.5 68 18 110/65 93 Room Air 11/18 0800 91 Room Air 11/18 0000 97 Nasal 2.0L Cannula 11/171 98.1 71 18 118/72 91 Intake & Output 11/18 1600 11/18 0800 11/18 0000 Intake Total 1180 800 300 Output Total 350 Balance 830 800 300 Intake, IV 700 800 300 Intake, Oral 480 Output, Urine 350 Physical Exam General Appearance: Alert, Oriented X3, Cooperative, No Acute Distress Skin: No Rashes Skin Temp/Moisture Exam: Warm/Dry Cardiovascular: Regular Rate, Normal S1, Normal S2 Lungs: Clear to Auscultation, Normal Air Movement Abdomen: Normal Bowel Sounds, Soft Extremities: No Clubbing, No Cyanosis, No Edema, Normal Pulses, No Tenderness/ Swelling Assessment/Plan Assessment: Pt is a 62YOF with PMH of HTN, TIA, Colitis (followed by Dr. Boswell who did an endoscopy in 04/24), EtOH abuse (last drink 12 years ago as pt reports). She recently had a cervical LN biopsy in 06/22 which was neg for neoplasm. Pt has a long psychiatric hx as well significant for bipolar disorder (not treated currently) and a suicide attempt in 2010 with overdose of fioricet for which she was tx inpatient here. RUQ US performed today did not show evidence of cholecystitis. Gall bladder was slightly enlarged but there was no pericholecystic fluid or stones visualized. CBD was normal caliber. She tolerated p.o., we will advance diet, if tolerated patient is ready to be discharged. Pancreatitis: The most common etiologies of pancreatitis are gallstone pancreatitis and alcoholic. As pt's blood EtOH was not detectable, we are pursuing gallstone pancreatitis. RUQ US did not demonstrate any stones but pt could have passed a stone which irritated the pancreas. We will also consider idiopathic pancreatitis. Plan: She tolerated liquid diet today, we are going to advance her diet to regular and we will reassess. DANNY on CKD: Pt has baseline kidney disease with Cr last measured as 1.4 in Apr 2017. Today, Cr is back to baseline at 1.5 with hydration making prerenal azotemia the most likely etiology of elevated Cr. Plan: BEP tomorrow, continue IV hydration. Hypercalcemia: Pt's hypercalcemia of unknown origin. Plan: recheck Ca. Hypertrigliceridemia: Pt's triglicerides are elevated likely d/t diet and lifestyle. Plan: consider statin when pt is stable, f/u outpatient Problem List: 1. Acute pancreatitis Pain Ratin Pain Location: Abdomen Pain Goal: Decreasee Pain Plan: Acetaminophen Tomorrow's Labs & Rationales: DAVIS Chang MD,[place] 11/18/17 2055: Attending MD Review Statement Attending Statement Attending MD Statement: examined this patient, discuss w/resident/PA/DIPLOMATIC INTERPRETER/TRANSLATOR, agreed w/resident/PA/DIPLOMATIC INTERPRETER/TRANSLATOR, reviewed EMR data (avail), discussed with nursing, discussed with case mgmt, amended to note Attending Assessment/Plan: The patient has significantly improved. Decreased nausea and pain. Will advance diet and follow.
--- NOTE | 2017-11-18 08:06 | PN- Student ---
Juan Diego Styles 11/18/17 0745: Subjective Subjective: Pt seen and examined this morning at bedside. She reports great improvements from yesterday though she did not sleep much overnight. Currently, she has nonradiating epigastric pain only with palpation but not when resting or moving. She is nauseous but her anti-nausea medications improve her symptoms and she feels ready to try liquids and foods today. Headache from yesterday persists but is only a 2/10 with meds. Pt reports chest pressure overnight as she had the night before which resolved with her pain meds. She also reports dysuria, which she had a couple of weeks ago related to a rash on her labia. Her forklift picker prescribed her some creams which she had been using at home which improved the rash and dysuria. Pt denies chest pain/pressure currently, SOB, weakness, fever, vomiting, and leg pain. She had one episode of loose stool overnight. Objective Objective: Vital Signs Date Time Temp Pulse Resp B/P B/P Pulse O2 O2 Flow FiO2 Mean Ox Delivery Rate 11/18 0000 97 Nasal 2.0L Cannula 11/17 2111 98.1 71 18 118/72 91 11/17 1347 98.4 82 20 118/80 92 Room Air 11/17 0800 Room Air Intake & Output 11/18 0800 11/18 0000 11/17 1600 Intake Total 906 289 5532 Output Total Balance 209 893 6086 Intake, IV 469 439 4471 Patient 187 lb Weight PE Gen - NAD, comfortable in bed, cooperative Psyh - appropriate affect, good mood Neuro - AOx4 CV - RRR no MRG Pulm - slight wheezes BL but good air entry Abd - +BS, soft, nondistended, slightly tender to light palpation in the epigastric region Ext - no edema, warm and well perfused, DP 2+ BL Results Results: Laboratory Tests 11/17/17 1036: Anion Gap 8, Estimated GFR 35 L, BUN/Creatinine Ratio 11.3, PT 12.5, INR 1.15, CBC w Diff NO MAN DIFF REQ, RBC 3.95 L, MCV 89.6, MCH 30.7, MCHC 34.3, RDW 14.4 , MPV 11.9 H, Gran % 79.4 H, Lymphocytes % 15.3 L, Monocytes % 4.4, Eosinophils % 0.6, Basophils % 0.3, Absolute Granulocytes 6.4, Absolute Lymphocytes 1.2, Absolute Monocytes 0.4, Absolute Eosinophils 0, Absolute Basophils 0 11/16/17 2310: Urinalysis LIGHT H, Urine Color YEL, Urine Clarity HAZY H, Urine pH 7.0, Ur Specific [place] 1.015, Urine Protein 30 H, Urine Ketones NEG, Urine Nitrite NEG, Urine Bilirubin NEG, Urine Urobilinogen 0.2, Ur Leukocyte Esterase LARGE H , Ur Microscopic SEDIMENT EXAMINED, Urine RBC 1-3, Urine WBC > 75 H, Ur Epithelial Cells MOD H, Urine Bacteria MOD H, Urine Mucus MOD H, Urine Hemoglobin TRACE-INTACT, Urine Glucose NEG 11/16/17 2100: Anion Gap 13, Estimated GFR 33 L, BUN/Creatinine Ratio 9.4, Glucose 113 H, Hemoglobin A1c 5.9 H, Lactic Acid 1.5, Calcium 10.5 H, Total Bilirubin 0.7, AST 38 H, ALT 31, Alkaline Phosphatase 78, Lactate Dehydrogenase 586, Troponin I 0.03, Total Protein 8.9 H, Albumin 4.9, Globulin 4.0, Albumin/Globulin Ratio 1.2, Triglycerides 286 H, Lipase > 59049 H, CBC w Diff NO MAN DIFF REQ, RBC 4.89, MCV 88.1, MCH 29.9, MCHC 33.9, RDW 13.9, MPV 11.0 H, Gran % 55.4, Lymphocytes % 34.4, Monocytes % 8.1, Eosinophils % 1.4, Basophils % 0.7, Absolute Granulocytes 7.3 H, Absolute Lymphocytes 4.6 H, Absolute Monocytes 1.1 H, Absolute Eosinophils 0.2, Absolute Basophils 0.1, Serum Alcohol < 10.0 Assessment/Plan Assessment: Assessment: Pt is a 62YOF with PMH of HTN, TIA, Colitis (followed by Dr. Boswell who did an endoscopy in 04/24), EtOH abuse (last drink 12 years ago as pt reports). She recently had a cervical LN biopsy in 06/22 which was neg for neoplasm. Pt has a long psychiatric hx as well significant for bipolar disorder (not treated currently) and a suicide attempt in 2010 with overdose of fioricet for which she was tx inpatient here at [facility]. Pt presented to the ED 2 days ago with mid abdominal pain, nausea, diarrhea, and anorexia. She was found to have a lipase >10K but had no CT changes and only slight elevation of AST with no other transaminitis. Pt's Cr was 1.6, Ca 10.5, and TG 286. PT and INR w/in normal limits. RUQ US performed yesterday did not show evidence of cholecystitis. Gall bladder was slightly enlarged but there was no pericholecystic fluid or stones visualized. CBD was normal caliber. Pancreas was not visualized d/t bowel gas. Overnight on 11/17/17 to 11/18/17, pt desatted to 89% on RA and so was placed on 1L O2 NC. She did not feel any dyspnea at the time and took the O2 off herself when she was uncomfortable about 1 hr later. She is satting well now on RA. Problem List/Plan 1. Pancreatitis The most common etiologies of pancreatitis are gallstone pancreatitis and alcoholic pancreatitis. As pt's blood EtOH was not detectable, we pursued gallstone pancreatitis. RUQ US did not demonstrate any stones but pt could have passed a stone which irritated the pancreas. We will also consider idiopathic pancreatitis. Hypercalcemia and hypertrigliceridemia are unlikely etiologies of pancreatitis as serum ca and serum TG are relatively low compared to serum levels that are generally found in patients with pancreatitis of those etiologies. As patient is improving clinically today, it is not critical to pursue an etiology for this isolated episode of pancreatitis. We can consider pursuing other etiologies if the pt has chronic sx. - initiate liquid diet and advance as tolerated - continue pain control and nausea control - decrase IV hydration with LR at 125mL/hr as PO intake likely to increase today w/ diet - f/u CBC, BEP, and LFTs tomorrow 2. Chest pressure Pt reports chest pressure overnight which did not radiate and was not asso with any other symptoms including pain or SOB. This could likely be due to the patient's pain, as she reports it was not very well controlled overnight. Other etiologies include angina but this is less likely as patient reports symptom resolution with administration of pain meds. The pt also had an EKG on admission on 11/17/17 which showed NSR with nonspecific T wave abnormalities which are not concerning for any cardiovascular pathology. - improve pain control with goal of being pain free but avoid nephrotoxic agents including NSAIDs - provide patient's home medications PO if she can tolerate them to assist with pain control as pt is on psych meds and gabapentin at home 3. Dysuria Pt had a vaginal rash a few weeks ago which is the likely culprit of her symptoms. She had asymptomatic bacteruria on admission. - f/u UA to determine treatment - pt was previously using hydrocortisone and another cream (pt can't remember the name) which helped her 3. DANNY on CKD Pt has baseline kidney disease with Cr last measured as 1.4 in Apr 2017. Yesterday, Cr was back to baseline at 1.5 with hydration making prerenal azotemia the most likely etiology of elevated Cr especially as pt reported diarrhea and poor PO intake on arrival to the ED. - BEP tomorrow - continue IV hydration with LR at 125mL/hr - hold NSAIDs and other nephrotoxic agents - pt should f/u outpatient for CKD as she was unaware that her creatinine was elevated 4. Hypercalcemia Pt's hypercalcemia of unknown origin but is unconcerning at this time. She is asymptomatic and hypercalcemia commonly resolves with IV hydration with LR. - recheck Ca tomorrow - continue IV LR at 125mL/hr 5. Hypertrigliceridemia Pt's triglicerides are elevated likely d/t diet and lifestyle. She is aware of this and is stable on fenofibric acid. - continue outpatient meds - consider addition of a statin on d/c if pt has not tried this before - f/u outpatient Diet: Liquid, advance as tolerated DVT Proph: Heparin, pt refused ALPS Code: Full Charlene GONZALEZ,[place] 11/18/17 1453: Attending MD Review Statement Attending Sign Off Attending Cosign Statement: I have: examined this patient, reviewed [facility] EMR data, discussd w/resident/PA/ ORNAMENT SETTER, discussed mgmt plan w/adriana, discussed mgmt plan w/CM, discussed mgmt plan w/ pt, agreed w/resident/PA/ORNAMENT SETTER, amended to note. Other Findings: The patient was seen and discussed with house staff. Significantly improved since yesterday with resolution of nausea. Pain also improved. Will advance diet and follow.
[2017-11-18] MEDS ORDERED: BUPROPION XL150 MG PO (10:13)
[2017-11-18] MEDS ORDERED: ALPRAZOLAM0.25 M1 PO (10:14)
[2017-11-18] MEDS ORDERED: BUSPIRONE HCL15 M1 PO (10:14)
[2017-11-18] MEDS ORDERED: FENOFIBRATE48 M1 PO (10:15)
[2017-11-18 14:24] VITALS: BP 110/65
--- NOTE | 2017-11-18 15:25 | Discharge Summary ---
Visit Information Visit Dates Admission Date: 11/16/17 Discharge Date: 11/19/2017 Hospital Course Course Attending Physician: Dallas Chang MD Primary Care Physician: Nadia Shin APRN Hospital Course: Pt is a 62YOF with PMH of HTN, TIA, Colitis (followed by Dr. Boswell who did an endoscopy in 04/24), EtOH abuse (last drink 12 years ago as pt reports). She recently had a cervical LN biopsy in 06/22 which was neg for neoplasm. Pt has a long psychiatric hx as well significant for bipolar disorder (not treated currently) and a suicide attempt in 2010 with overdose of fioricet for which she was tx inpatient here. RUQ US performed today did not show evidence of cholecystitis. Gall bladder was slightly enlarged but there was no pericholecystic fluid or stones visualized. CBD was normal caliber. She tolerated p.o., we advanced diet, tolerated, patient is discharged. Pancreatitis: The most common etiologies of pancreatitis are gallstone pancreatitis and alcoholic. As pt's blood EtOH was not detectable, we are pursuing gallstone pancreatitis. RUQ US did not demonstrate any stones but pt could have passed a stone which irritated the pancreas. We will also consider idiopathic pancreatitis. Lipase on admission was more than 10,000. Plan: She tolerated liquid diet today, the advance her diet, she tolerated, she is discharged. DANNY on CKD: Pt has baseline kidney disease with Cr last measured as 1.4 in Apr 2017. Today, Cr is back to baseline at 1.5 with hydration making prerenal azotemia the most likely etiology of elevated Cr. Plan: BEP tomorrow, continue IV hydration. Hypercalcemia: Pt's hypercalcemia of unknown origin. Plan: Calcium was 10.5. Hypertrigliceridemia: Pt's triglicerides are elevated likely d/t diet and lifestyle. Plan: consider statin when pt is stable, f/u outpatient Allergies: Coded Allergies: NO KNOWN ALLERGIES (11/12/10) Significant Procedures: EXAM TYPE: CAT - CT ABD & PELVIS W/O IV CONTRAS EXAMINATION: CT ABDOMEN AND PELVIS WITHOUT CONTRAST CLINICAL INFORMATION: Acute pancreatitis. COMPARISON: 01/22/2010 TECHNIQUE: Multidetector volumetric imaging was performed from the superior aspect of the liver through the pubic symphysis. Sagittal and coronal reformatted images were obtained on the technologist's workstation. DLP: 534 mGy-cm FINDINGS: LUNG BASES: The visualized lung bases are unremarkable. LIVER, GALLBLADDER, AND BILIARY TREE: The liver is normal in size, shape, and attenuation. No focal hepatic lesion or biliary ductal dilatation is present. The gallbladder is distended with no evidence of radiopaque gallstones, gallbladder wall thickening, or obvious pericholecystic inflammatory changes. PANCREAS: The pancreatic parenchyma is homogenous. No peripancreatic inflammation or fluid collection. No ductal dilatation. SPLEEN: Unremarkable. ADRENAL GLANDS: The left adrenal gland is unremarkable. 1.6 cm right adrenal gland nodule likely representing a lipid rich adenoma. This is unchanged in size. KIDNEYS AND URETERS: The kidneys are normal in size, shape, and attenuation. No hydronephrosis, hydroureter, or calculi seen. No perinephric stranding. BLADDER: Unremarkable. GASTROINTESTINAL TRACT: The stomach is unremarkable. The small bowel is normal in caliber. There is no obstruction. A majority of the colon is decompressed. No inflammatory changes. The appendix is not seen, although no inflammation or wall thickening at the cecum. No free air or free fluid. ABDOMINAL WALL: No significant hernia is appreciated. LYMPH NODES: Normal. VASCULAR: Normal caliber aorta with mild atherosclerotic calcifications. PELVIC VISCERA: Unremarkable. OSSEOUS STRUCTURES: No acute or suspicious osseous abnormality. Mild degenerative changes throughout the spine. IMPRESSION: No acute findings in the abdomen or pelvis. No inflammatory changes. Unremarkable appearance of the pancreas. No bowel obstruction. Right adrenal adenoma. EXAM TYPE: US - US-COMPLETE ABDOMEN EXAMINATION: US ABDOMEN COMPLETE CLINICAL INFORMATION: Abdominal pain, increased lipase. COMPARISON: CT abdomen and pelvis 11/16/2017. TECHNIQUE: Real-time imaging of the abdominal viscera. FINDINGS: PANCREAS: Obscured by bowel gas. ABDOMINAL AORTA: The proximal segment is normal in caliber. INFERIOR VENA CAVA: Visualized portions are normal. LIVER: Normal. The liver demonstrates normal size, contour and echogenicity. No focal lesion or intrahepatic biliary duct dilatation. GALLBLADDER: Mildly distended without stones, gallbladder wall thickening, pericholecystic fluid, or focal tenderness reported by the technologist. COMMON BILE DUCT: Normal in caliber measuring 0.4 cm in diameter. RIGHT KIDNEY: Normal. No hydronephrosis. No renal calculi or focal parenchymal lesions. The kidney measures 10.0 cm in maximum dimension. LEFT KIDNEY: Normal. No hydronephrosis. No renal calculi or focal parenchymal lesions. The kidney measures 9.4 cm in maximum dimension. SPLEEN: Normal. The spleen measures 7.8 cm in maximum dimension. FREE FLUID: None. IMPRESSION: The gallbladder is mildly distended without evidence of cholecystitis. No cholelithiasis. The pancreas is obscured by bowel gas. EXAM TYPE: RAD - XRY-PORTABLE CHEST XRAY EXAMINATION: XR PORTABLE CHEST CLINICAL INFORMATION: Chest pain. COMPARISON: 01/27/2017 TECHNIQUE: Portable frontal view of the chest was obtained. FINDINGS: The lungs are well expanded. Linear right mid lung atelectasis. No consolidation or effusion. No edema. No pneumothorax. The cardiomediastinal silhouette is unchanged, with a calcified aorta. IMPRESSION: Linear right mid lung atelectasis. Otherwise clear lungs. Pertinent Lab Results: Lipase > 51383 WBC: 13.3 ---> 8.0 Hb: 12.1 Cr: 1.5 T HbA1c: 5.9 INR: 1.15 Disposition Summary Disposition Principal Diagnosis: Pancreatitis Additional Diagnosis: DANNY on CKD Hypercalcemia Hypertriglyceridemia COPD HTN EtOH use disorder Bipolar disorder with previous suicidal ideation Obesity Discharge Disposition: home or self care Discharge Instructions General Discharge Information Code Status: Full Code Patient's Diet: Heart healthy diet Patient's Activity: As tolerated Follow-Up Instructions/Appts: Please follow-up to PCP Please follow-up with your GI doctor Medications at Discharge Discharge Medications: Continue taking these medications: Bupropion HCl (Bupropion XL) 150 MG TAB.ER.24H 1 Tablet ORAL TWICE DAILY Comments: NOT GIVEN IN HOSPITAL Buspirone HCl (Buspirone HCl) 15 MG TABLET 2 Tablet ORAL TWICE DAILY Comments: NOT GIVEN IN HOSPITAL Alprazolam (Alprazolam) 0.25 MG TABLET 1 Tablet ORAL THREE TIMES A DAY NEEDED Comments: Last Taken: 11/19/17 Time: 12:00 PM Fenofibrate Nanocrystallized (Fenofibrate) 48 MG TABLET 1 Tablet ORAL DAILY Comments: NOT GIVEN IN HOSPITAL Paroxetine HCl (Paroxetine HCl) 40 MG TABLET 1 Tablet ORAL DAILY Comments: NOT GIVEN IN HOSPITAL Gabapentin (Neurontin) 300 MG CAPSULE 1 Capsule ORAL THREE TIMES DAILY Comments: NOT GIVEN IN HOSPITAL Ziprasidone HCl (Ziprasidone HCl) 80 MG CAPSULE 1 Capsule ORAL TWICE DAILY Instructions: with food Comments: NOT GIVEN IN HOSPITAL Hydroxyzine Hydrochloride (Atarax) 50 MG TAB 1 Tablet ORAL THREE TIMES DAILY Comments: NOT GIVEN IN HOSPITAL Oxybutynin Chloride (Oxybutynin Chloride ER) 10 MG TAB.ER.24 1 Tablet ORAL DAILY Comments: NOT GIVEN IN HOSPITAL Budesonide (Uceris) 9 MG TABDR...ER 9 Milligram ORAL Every 3 days Comments: NOT GIVEN IN HOSPITAL Nystatin (Nyamyc) 100,000 UNIT/GRAM POWDER 1 Packet Comments: NOT GIVEN IN HOSPITAL Start taking the following new medications: Famotidine (Pepcid) 20 MG TABLET 1 Tablet ORAL TWICE DAILY Qty = 60 No Refills Instructions: Please take 20-30 minutes before breakfast and dinner Comments: NOT GIVEN IN HOSPITAL Ondansetron HCl (Zofran) 4 MG TABLET 1 Tablet ORAL THREE TIMES DAILY as needed for NAUSEA/VOMITTING Qty = 15 No Refills Comments: Last Taken: 11/19/17 Time: 6:00AM Copies To: Nadia Shin APRN Attending Review Statement Documenting Attending: Dallas Chang MD Other Findings: The patient was seen and agree with the summary of care and plan. Significantly improved and tolerating diet today. Will follow-up with PCP and GI in 1-2 weeks.
[2017-11-18 21:27] VITALS: BP 140/82
[2017-11-19 05:36] VITALS: BP 136/78
--- NOTE | 2017-11-19 06:51 | PN- Housestaff ---
Robert Elaine 11/19/17 0650: Subjective Follow-up For: Pancreatitis DANNY on CKD Hypercalcemia Hypertriglyceridemia Subjective: I visited the patient this morning. She was lying back in her bed, with no acute distress. Alert and oriented 3. She reports that she had more severe abdominal pain last night after having dinner, she believes the reason was because she had too much. We changed diet to full liquids for breakfast this morning. Saw her again after breakfast, she did not have any tenderness, pain, nausea, vomiting after breakfast. She also had complaints about itching from yesterday. Review of Systems Constitutional: Reports: see HPI. Objective Last 24 Hrs of Vital Signs/I&O Vital Signs Date Time Temp Pulse Resp B/P B/P Pulse O2 O2 Flow FiO2 Mean Ox Delivery Rate 11/19 0536 98.5 72 20 136/78 91 Room Air 11/18 2127 98.6 74 18 140/82 93 Room Air 11/18 1424 98.5 68 18 110/65 93 Room Air Intake & Output 11/19 1600 11/19 0800 11/19 0000 Intake Total 1100 760 Output Total 450 Balance 1100 310 Intake, IV 800 400 Intake, Oral 300 360 Output, Urine 450 Physical Exam General Appearance: Alert, Oriented X3, Cooperative, No Acute Distress Skin Temp/Moisture Exam: Warm/Dry Sepsis Skin Exam (color): Normal for Ethnicity HEENT: Atraumatic, PERRLA Neck: Supple, No JVD Cardiovascular: Regular Rate, Normal S1, Normal S2 Lungs: Clear to Auscultation, Normal Air Movement Abdomen: Normal Bowel Sounds, Soft Assessment/Plan Assessment: Pt is a 62YOF with PMH of HTN, TIA, Colitis (followed by Dr. Boswell who did an endoscopy in 04/24), EtOH abuse (last drink 12 years ago as pt reports). She recently had a cervical LN biopsy in 06/22 which was neg for neoplasm. Pt has a long psychiatric hx as well significant for bipolar disorder (not treated currently) and a suicide attempt in 2010 with overdose of fioricet for which she was tx inpatient here. RUQ US performed today did not show evidence of cholecystitis. Gall bladder was slightly enlarged but there was no pericholecystic fluid or stones visualized. CBD was normal caliber. She tolerated p.o., we will advance diet, if tolerated patient is ready to be discharged. Pancreatitis: The most common etiologies of pancreatitis are gallstone pancreatitis and alcoholic. As pt's blood EtOH was not detectable, we are pursuing gallstone pancreatitis. RUQ US did not demonstrate any stones but pt could have passed a stone which irritated the pancreas. We will also consider idiopathic pancreatitis. Plan: She tolerated liquid diet today, we are going to advance her diet to regular and we will reassess. DANNY on CKD: Pt has baseline kidney disease with Cr last measured as 1.4 in Apr 2017. Today, Cr is back to baseline at 1.5 with hydration making prerenal azotemia the most likely etiology of elevated Cr. Plan: BEP tomorrow, continue IV hydration. Hypercalcemia: Pt's hypercalcemia of unknown origin. Plan: recheck Ca. Hypertrigliceridemia: Pt's triglicerides are elevated likely d/t diet and lifestyle. Plan: consider statin when pt is stable, f/u outpatient Problem List: 1. Acute pancreatitis 2. Hypercalcemia 3. Hypertriglyceridemia Pain Ratin Pain Location: Abdomen Pain Goal: DECREASE Pain Plan: Acetaminophen Tomorrow's Labs & Rationales: Not applicable Dallas Chang MD 11/20/17 0634: Attending MD Review Statement Attending Statement Attending MD Statement: examined this patient, discuss w/resident/PA/PROJECT ASSOCIATE, agreed w/resident/PA/PROJECT ASSOCIATE, reviewed EMR data (avail), discussed with nursing, discussed with case mgmt, amended to note Attending Assessment/Plan: Agree with above.
--- NOTE | 2017-11-19 07:14 | PN- Student ---
See Addendum Juan Diego Styles 11/19/17 0713: Subjective Subjective: Pt seen and examined this morning. She had some transient increase in her abdominal pain to 5/10 from 2/10 after eating a solid dinner but it has improved this morning back to /10. She denies chest pain, SOB, difficulty passing urine or stool. She says her dysuria has improved and that she will resume her labial creams. She describes slight nausea and headache, both of which are controlled with her pain and nausea meds. Objective Objective: Vital Signs Date Time Temp Pulse Resp B/P B/P Pulse O2 O2 Flow FiO2 Mean Ox Delivery Rate 11/19 0536 98.5 72 20 136/78 91 Room Air 11/18 2127 98.6 74 18 140/82 93 Room Air 11/18 1424 98.5 68 18 110/65 93 Room Air Intake & Output 11/19 1600 11/19 0800 11/19 0000 Intake Total 1100 760 Output Total 450 Balance 1100 310 Intake, IV 800 400 Intake, Oral 300 360 Output, Urine 450 PE Gen - NAD, comfortable Psych - appropriate affect, not anxious Neuro - AOx4 CV - RRR no mrg Pulm - diffuse slight wheezes but good air entry BL Abd - slightly tender to moderate palpation in the epigastric region, no masses appreciated, +BS Ext - warm and well perfused, no edema, ALPS in place Results Results: Laboratory Tests 11/18/17 2100: Urine Color YEL, Urine Clarity CLEAR, Urine pH 7.0, Ur Specific [place] 1.015, Urine Protein NEG, Urine Ketones NEG, Urine Nitrite NEG, Urine Bilirubin NEG, Urine Urobilinogen 0.2, Ur Leukocyte Esterase MOD H, Ur Microscopic SEDIMENT EXAMINED, Urine RBC RARE, Urine WBC 3-5 H, Ur Epithelial Cells FEW, Urine Bacteria FEW H, Urine Hemoglobin NEG, Urine Glucose NEG 11/17/17 1036: Anion Gap 8, Estimated GFR 35 L, BUN/Creatinine Ratio 11.3, PT 12.5, INR 1.15, CBC w Diff NO MAN DIFF REQ, RBC 3.95 L, MCV 89.6, MCH 30.7, MCHC 34.3, RDW 14.4 , MPV 11.9 H, Gran % 79.4 H, Lymphocytes % 15.3 L, Monocytes % 4.4, Eosinophils % 0.6, Basophils % 0.3, Absolute Granulocytes 6.4, Absolute Lymphocytes 1.2, Absolute Monocytes 0.4, Absolute Eosinophils 0, Absolute Basophils 0 11/16/17 2310: Urinalysis LIGHT H, Urine Color YEL, Urine Clarity HAZY H, Urine pH 7.0, Ur Specific [place] 1.015, Urine Protein 30 H, Urine Ketones NEG, Urine Nitrite NEG, Urine Bilirubin NEG, Urine Urobilinogen 0.2, Ur Leukocyte Esterase LARGE H , Ur Microscopic SEDIMENT EXAMINED, Urine RBC 1-3, Urine WBC > 75 H, Ur Epithelial Cells MOD H, Urine Bacteria MOD H, Urine Mucus MOD H, Urine Hemoglobin TRACE-INTACT, Urine Glucose NEG 11/16/17 2100: Anion Gap 13, Estimated GFR 33 L, BUN/Creatinine Ratio 9.4, Glucose 113 H, Hemoglobin A1c 5.9 H, Lactic Acid 1.5, Calcium 10.5 H, Total Bilirubin 0.7, AST 38 H, ALT 31, Alkaline Phosphatase 78, Lactate Dehydrogenase 586, Troponin I 0.03, Total Protein 8.9 H, Albumin 4.9, Globulin 4.0, Albumin/Globulin Ratio 1.2, Triglycerides 286 H, Lipase > 19793 H, CBC w Diff NO MAN DIFF REQ, RBC 4.89, MCV 88.1, MCH 29.9, MCHC 33.9, RDW 13.9, MPV 11.0 H, Gran % 55.4, Lymphocytes % 34.4, Monocytes % 8.1, Eosinophils % 1.4, Basophils % 0.7, Absolute Granulocytes 7.3 H, Absolute Lymphocytes 4.6 H, Absolute Monocytes 1.1 H, Absolute Eosinophils 0.2, Absolute Basophils 0.1, Serum Alcohol < 10.0 Assessment/Plan Assessment: Assessment: Pt is a 62YOF with PMH of HTN, TIA, Colitis (followed by Dr. Boswell who did an endoscopy in 04/24), EtOH abuse (last drink 12 years ago as pt reports). She recently had a cervical LN biopsy in 06/22 which was neg for neoplasm. Pt has a long psychiatric hx as well significant for bipolar disorder (not treated currently) and a suicide attempt in 2010 with overdose of fioricet for which she was tx inpatient here at [facility]. Pt presented to the ED 3 days ago with mid abdominal pain, nausea, diarrhea, and anorexia. She was found to have a lipase >10K but had no CT changes and only slight elevation of AST with no other transaminitis. Pt's Cr was 1.6, Ca 10.5, and TG 286. PT and INR w/in normal limits. UA showed asymptomatic bacteriuria. RUQ US performed yesterday did not show evidence of cholecystitis. Gall bladder was slightly enlarged but there was no pericholecystic fluid or stones visualized. CBD was normal caliber. Pancreas was not visualized d/t bowel gas. UA yesterday showed only minimal bacteruria persists. Overnight on 11/17/17 to 11/18/17, pt desatted to 91% on RA and so was placed on 1L O2 NC. She did not feel any dyspnea at the time and took the O2 off herself when she was uncomfortable about 1 hr later. She continues satting well in the 90s now on RA since the episode. Problem List/Plan 1. Pancreatitis The most common etiologies of pancreatitis are gallstone pancreatitis and alcoholic pancreatitis. As pt's blood EtOH was not detectable, we pursued gallstone pancreatitis. RUQ US did not demonstrate any stones but pt could have passed a stone which irritated the pancreas. We will also consider idiopathic pancreatitis. Hypercalcemia and hypertrigliceridemia are unlikely etiologies of pancreatitis as serum ca and serum TG are relatively low compared to serum levels that are generally found in patients with pancreatitis of those etiologies. As patient is improving clinically today, it is not critical to pursue an etiology for this isolated episode of pancreatitis. We can consider pursuing other etiologies if the pt has chronic sx. - continue liquid diet on discharge and advance slowly as tolerated - continue pain control and nausea control on discharge PRN - pt has improved symptomatically so she is safe for discharge 2. Chest pressure Pt reported chest pressure overnight from 11/17/17 to 11/18/17 which did not radiate and was not asso with any other symptoms including pain or SOB. This could likely be due to the patient's pain, as she reports it was not very well controlled overnight. Other etiologies include angina but this is less likely as patient reports symptom resolution with administration of pain meds. The pt also had an EKG on admission on 11/17/17 which showed NSR with nonspecific T wave abnormalities which are not concerning for any cardiovascular pathology. - pt reports resolution of chest pressure and is not having symptoms. - continue pain control PRN 3. Dysuria Pt had a vaginal rash a few weeks ago which is the likely culprit of her symptoms. She had asymptomatic bacteruria on admission and UA yesterday shows improvement. - pt was previously using hydrocortisone and another cream (pt can't remember the name) which helped her - resume creams as per outpatient 3. DANNY on CKD Pt has baseline kidney disease with Cr last measured as 1.4 in Apr 2017. Yesterday, Cr was back to baseline at 1.5 with hydration making prerenal azotemia the most likely etiology of elevated Cr especially as pt reported diarrhea and poor PO intake on arrival to the ED. - pt should f/u outpatient for CKD as she was unaware that her creatinine was elevated 4. Hypercalcemia Pt's hypercalcemia of unknown origin but is unconcerning at this time. She is asymptomatic and hypercalcemia commonly resolves with IV hydration with LR. - f/u outpatient if symptoms arise 5. Hypertrigliceridemia Pt's triglicerides are elevated likely d/t diet and lifestyle. She is aware of this and is stable on fenofibric acid. - continue outpatient meds - consider addition of a statin on d/c if pt has not tried this before - f/u outpatient Diet: Liquid, advance as tolerated DVT Proph: Heparin, pt refused ALPS Code: Full Diet: Liquid, advance as tolerated DVT Proph: Heparin, pt refused ALPS Code: Full
--- NOTE | 2017-11-19 11:18 | Patient Discharge Instructions ---
Discharge Instructions General Discharge Information You were seen/treated for: Pancreatitis DANNY on CKD Hypercalcemia Hypertriglyceridemia History of alcohol use disorder History of colitis History of bipolar disorder Special Instructions: Please follow-up with your PCP Please start slowly with a liquid diet and toast and advance slowly to a regular diet as you are able to tolerate it. Please follow up with your GI doctor. Diet Continue normal diet: No Recommended Diet: Full Liquids Activity Full Activity/No Limits: No Activity Self Limited: Yes Acute Coronary Syndrome Inclusion Criteria At DC or during hospital stay patient has or had the following: ACS DIAGNOSIS No Discharge Core Measures Meds if any: Prescribed or Continued at Discharge Meds if any: NOT Prescribed or Continued at Discharge Congestive Heart Failure Inclusion Criteria At DC or during hospital stay patient has or had the following: CHF DIAGNOSIS No Discharge Core Measures Meds if any: Prescribed or Continued at Discharge Meds if any: NOT Prescribed or Continued at Discharge Cerebrovascular accident Inclusion Criteria At DC or during hospital stay patient has or had the following: CVA/TIA Diagnosis No Discharge Core Measures Meds if any: Prescribed or Continued at Discharge Meds if any: NOT Prescribed or Continued at Discharge Venous thromboembolism Inclusion Criteria VTE Diagnosis No VTE Type NONE VTE Confirmed by (Test) NONE Discharge Core Measures - Per Current guidelines, there needs to be overlap - treatment for the first 5 days of Warfarin therapy. - If discharged on Warfarin prior to 5 days of - overlap therapy, the patient will need to be - assessed for post discharge needs including - *Post discharge parental anticoagulation - *Warfarin and/or parental anticoagulation education - *Follow up date to check INR post discharge At least 5 days overlap therapy as Inpatient No Meds if any: Prescribed or Continued at Discharge Note: Overlap Therapy is Warfarin and Anticoagulant Meds if any: NOT Prescribed or Continued at Discharge
[2017-11-19] MEDS ORDERED: NEURONTIN300 M1 PO (13:08)
[2017-11-19] MEDS ORDERED: PAROXETINE HCL40 M1 PO (13:08)
[2017-11-19] MEDS ORDERED: ZIPRASIDONE HCL80 M1 PO (13:08)
[2017-11-19] MEDS ORDERED: HYDROXYZINE HCL50 M1 PO (13:09)
[2017-11-19] MEDS ORDERED: OXYBUTYNIN CHLO10 M1 PO (13:10)
[2017-11-19] MEDS ORDERED: UCERIS9 M1 PO (13:20)
[2017-11-19] MEDS ORDERED: NYAMYC15 GM (13:21)
[2017-11-19] MEDS ORDERED: OMEPRAZOLE20 M2 PO (14:16)
[2017-11-19] MEDS ORDERED: PEPCID20 M1 PO ×2 (14:30→15:18)
[2017-11-19 15:07] VITALS: BP 130/70
[2017-11-19] MEDS ORDERED: ZOFRAN4 M2 PO (15:17)
== END 2017-11-19 16:25 | DRG 440 ==
LOC: ERH 20:31 → 2NA 23:34 → ERHI 23:34 → CANRESERV 11-17 00:25 → ENRESERV 11-17 00:25 → 2NA 11-17 01:41
PROVIDERS: Physician Assistant Medical
DX: K85.90 Acute pancreatitis without necrosis or infection, unspecified (principal); I95.9 Hypotension, unspecified; N18.3 Chronic kidney disease, stage 3 (moderate); E83.52 Hypercalcemia; F41.9 Anxiety disorder, unspecified; F32.9 Major depressive disorder, single episode, unspecified; R68.0 Hypothermia, not associated with low environmental temperature; R30.0 Dysuria; E78.1 Pure hyperglyceridemia; J44.9 Chronic obstructive pulmonary disease, unspecified; I12.9 Hypertensive chronic kidney disease with stage 1 through stage 4 chronic kidney disease, or unspecified chronic kidney disease; E66.9 Obesity, unspecified; Z68.31 Body mass index [BMI] 31.0-31.9, adult; Z91.5 Personal history of self-harm; F17.200 Nicotine dependence, unspecified, uncomplicated; Z86.73 Personal history of transient ischemic attack (TIA), and cerebral infarction without residual deficits; Z95.0 Presence of cardiac pacemaker
CPT/HCPCS: 2NAP; ERO; 36415; 71045; 74176; 81001; 82436; 93005; 93010; 96374; 96375; G0480; J0131; J1200; J1644; J2405; J2765; J3250; J3490; J7120